=== PATIENT | female | born 1995 | race Hispanic/Latino ===

== ENCOUNTER 2017-01-28 01:23 | Outpatient (CLI) | payer MEDICAID ==
[2017-01-28 01:42] VITALS: BP 138/84
== END 2017-01-28 02:21 | disposition home or self-care (01) ==
LOC: TRG 01:23
PROVIDERS: ATTEND Obstetrics & Gynecology
DX: O48.0 Post-term pregnancy (principal); Z3A.40 40 weeks gestation of pregnancy
CPT/HCPCS: 59025

== ENCOUNTER 2017-01-28 21:43 | Outpatient (CLI) | payer MEDICAID ==
[2017-01-28 21:57] VITALS: BP 138/75
[2017-01-28] MEDS ORDERED: VISTARIL PO ONE (23:41)
== END 2017-01-29 00:06 | disposition home or self-care (01) ==
LOC: TRG 21:43
PROVIDERS: ATTEND Obstetrics & Gynecology
DX: O48.0 Post-term pregnancy (principal); Z3A.40 40 weeks gestation of pregnancy
CPT/HCPCS: 59025; Q0177